=== PATIENT | female | born 2000 | race American Indian/Alaskan Native ===

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

== ENCOUNTER 2019-05-29 13:02 | Outpatient (CLI) | payer MEDICAID ==
[2019-05-29] MEDS ORDERED: LACTATED RINGERS 500 ML IV ONE (13:33)
[2019-05-29 14:00] VITALS: BP 94/50
[2019-05-29] MEDS ORDERED: LACTATED RINGERS 1,000 ML IV SCH (14:00)
[2019-05-29 14:17] LABS: Bacteria,Urine 2+ /HPF (Negative); Bilirubin,Urine NEG (Negative); Blood,Urine NEG (Negative); Color,Urine Yellow (Yellow); Mucus,Urine 1+ /HPF; Protein,Urine <15 mg/dL mg/dL (Negative); Urobilinogen,Urine < 2.0 mg/dL (<2.0)
== END 2019-05-29 14:33 | disposition home or self-care (01) ==
LOC: TRG 13:02
PROVIDERS: ATTEND Obstetrics & Gynecology
DX: O26.853 Spotting complicating pregnancy, third trimester (principal); Z3A.30 30 weeks gestation of pregnancy
CPT/HCPCS: 81001

== ENCOUNTER 2019-08-11 08:54 | Inpatient (IN) | payer MEDICAID ==
[2019-08-11] MEDS ORDERED: OXYTOCIN 20 UNIT/1000ML DRIP 20 UNITS/1,000 ML BAG IV SCH (10:00)
[2019-08-11] MEDS ORDERED: OXYTOCIN DRIP 30 UNITS/500 ML BAG IV SCH (10:00)
--- NOTE | 2019-08-11 10:22 | History and Physical Report ---
History of Present Illness Date of examination: 08/11/19 (pt presents for IOL d/t postdates) History of present illness: EDC Confirmation: 08/01/2019 Gestational Age: 28 5/7 weeks Past History : 2 Term Births: 1 Premature Births: 0 Living Children: 1 Para: 1 Mult. Births: 0 Prev : 0 Prev. attempt? none Aborta: 0 Elect. Ab: 0 Spont. Ab: 0 Ectopics: 0 # 1 Delivery date: 05/11/2018 Weeks Gestation: 41 labor: no Delivery type: Anesthesia type: none Sex: Female weight: 7#12 Past Medical History: Negative Past Medical History Past Surgical History: negative Past Medical History Anesthesia Complications: negative Anemia: negative Autoimmune Disorder: negative Bleeding Disorder: negative Blood Transfusions: negative Breast Disease: negative Diabetes: negative Heart Disease: negative Hypertension: negative Hepatitis/Liver Disease: negative Kidney Disease/UTI: negative Neurologic/Epilepsy/Migraines: negative Phlebitis/Varicosities: negative Psychiatric: negative Pulmonary Disease/Asthma: negative Thyroid Disease: negative Hospitalizations: negative Surgery (Non-sliver chopper): negative Abnormal PAP: negative MARIA ESTHER Exposure: negative Infertility: negative Uterine Anomaly: negative Uterine Surgery (not C/S): negative Other Gynecologic Problems: negative Family Hx: no hx of Ca Social Hx: no smoking/ETOH Infection History Hx of STD: chlamydia Varicella/Chicken Pox Status: Immunized Genetic History Congenital Heart Defect: Mom: no Dad: no Hugo Disease: Mom: no Dad: no Thalassemia Mom: no Dad: no Neural Tube Defect Mom: no Dad: no Down's Syndrome Mom: no Dad: no Bill-Sachs Mom: no Dad: no Sickle Cell Disease/Trait Mom: no Dad: no Hemophilia Mom: no Dad: no Muscular Dystrophy Mom: no Dad: no Cystic Fibrosis Mom: no Dad: no Roslyn Chorea Mom: no Dad: no Mental Retardation Mom: no Dad: no Fragile X Mom: no Dad: no Other Genetic/Chromosomal Disorder Mom: no Dad: no Child w/other defect Mom: no Dad: no Enviromental Exposures Xray Exposure: no Medication, drug, or alcohol use since LMP: no Chemical/Other Exposure: no Exposure to Cat Liter: no Hx of Parvovirus (Fifth Disease): no Occupational Exposure to Children: none Active Medications (reviewed today): None Current Allergies (reviewed today): No known allergies Past History - Obstetrical History Expected Date of Delivery: 08/01/19 Actual Gestation: 41 Week(s) 3 Day(s) : 2 Para: 1 Hx # Term Pregnancies: 1 Number of Pregnancies: 0 Spontaneous Abortions: 0 Induced : 0 Number of Living Children: 1 Medications and Allergies Allergies Allergy/AdvReac Type Severity Reaction Status Date / Time No Known Allergies Allergy Unverified 12/08/17 13:40 Active Meds: Active Medications Ephedrine Sulfate (Ephedrine Sulfate) 10 mg IV Q2M PRN PRN Reason: Hypotension Fentanyl (Sublimaze) 100 mcg IV Q2H PRN PRN Reason: Labor Pain Oxytocin/Sodium Chloride (Pitocin/Ns 20 Unit/1000ml Drip) 20 units in 1,000 mls @ 125 mls/hr IV DIRECT ALFONSO Oxytocin/Sodium Chloride (Pitocin/Ns 30 Unit/500ml) 30 units in 500 mls @ 4 mls/hr IV Q30MIN ALFONSO; Protocol Lactated Ringer's (Lactated Ringers) 1,000 mls @ 125 mls/hr IV DIRECT ALFONSO Lidocaine (Xylocaine 2%) 20 ml INFILTRATI ONCE NR Stop: 08/12/19 10:29 Mineral Oil (Mineral Oil) 30 ml PO QHS PRN PRN Reason: Constipation Ondansetron HCl (Zofran) 4 mg IV Q8H PRN PRN Reason: Nausea And Vomiting Terbutaline Sulfate (Brethine) 0.25 mg SUB-Q ONCE PRN PRN Reason: Hyperstimulation/Hypertonicity - Vital Signs Vital signs: Vital Signs Pulse Pulse Ox 91 H 99 08/11/19 09:22 08/11/19 09:22 Temp Pulse Resp BP Pulse Ox 98.4 F 90 16 108/69 97 08/11/19 09:23 08/11/19 10:07 08/11/19 09:23 08/11/19 09:23 08/11/19 10:07 - Physical Exam Breasts: Positive: deferred Cardiovascular: Regular rate, Normal S1, Normal S2 Lungs: Positive: Normal air movement Abdomen: Positive: normal appearance, soft, normal bowel sounds. Negative: distention, tenderness Genitourinary (Female): Positive: normal external genitalia Vulva: both: normal Vagina: Positive: normal moisture. Negative: discharge Cervix: Negative: lesion, discharge Uterus: Positive: normal size, normal contour Adnexa: both: normal Anus/Rectum: Positive: normal perianal skin, heme negative. Negative: rectal mass, hemorrhoids Extremities: Deep Tendon Reflex Grade: Normal +2 - Obstetrical FHR: category 1, category 2 (deep variable noted by RN Called urgently to bedside Internals placed Cat 1 ) Uterine Contraction Monitor Mode: Internal Cervical Dilatation: 4.5 (Internals placed) Cervical Effacement Percentage: 70 (clear fluid) station: -1 Uterine Contraction Pattern: Irregular Uterine Tone Measurement Phase: Resting Uterine Contraction Intensity: Mild Results Result Diagrams: 08/11/19 10:40 All other labs normal. GBS Negative HBsAg Screen Negative Negative *1 RPR Non Reactive Non Reactive *2 Rubella Antibodies, IgG 2.18 index Immune >0.99 *3 Non-immune <0.90 Equivocal 0.90 - 0.99 Immune >0.99 ABO Grouping A *4 Rh Factor Positive *5 Please note: Prior records for this patient's ABO / Rh type are not available for additional verification. Antibody Screen Negative Negative *6 WBC [H] 11.0 x10E3/uL 3.4-10.8 *7 RBC 3.93 x10E6/uL 3.77-5.28 *8 Hemoglobin [L] 10.8 g/dL 11.1-15.9 *9 Hematocrit 34.1 % 34.0-46.6 *10 MCV 87 fL 79-97 *11 MCH 27.5 pg 26.6-33.0 *12 MCHC 31.7 g/dL 31.5-35.7 *13 RDW 14.2 % 12.3-15.4 *14 Platelets 295 x10E3/uL 150-450 *15 Neutrophils 72 % Not Estab. *16 Lymphs 19 % Not Estab. *17 Monocytes 7 % Not Estab. *18 Eos 2 % Not Estab. *19 Basos 0 % Not Estab. *20 ! Immature Cells <No Reported Value> *21 Neutrophils (Absolute) [H] 7.9 x10E3/uL 1.4-7.0 *22 Lymphs (Absolute) 2.1 x10E3/uL 0.7-3.1 *23 Monocytes(Absolute) 0.7 x10E3/uL 0.1-0.9 *24 Eos (Absolute) 0.2 x10E3/uL 0.0-0.4 *25 Baso (Absolute) 0.0 x10E3/uL 0.0-0.2 *26 ! Immature Granulocytes 0 % Not Estab. *27 ! Immature Grans (Abs) 0.0 x10E3/uL 0.0-0.1 *28 ! NRBC <No Reported Value> *29 Hematology Comments: <No Reported Value> *30 Tests: (2) Panel 989275 ([id number]) HIV Screen 4th Generation wRfx Non Reactive Non Reactive *31 Tests: (3) Gest. Diabetes 1-Hr Screen (731455) ! Gestational Diabetes Screen 87 mg/dL 65-139 *32 According to ADA, a glucose threshold of >139 mg/dL after 50-gram load identifies approximately 80% of women with gestational diabetes mellitus, while the sensitivity is further increased to approximately 90% by a threshold of >129 mg/dL. Tests: (4) HCV Ab w/Rflx to Verification (918572) ! HCV Ab <0.1 s/co ratio 0.0-0.9 *33 Tests: (5) Comment: (008024) ! Comment: SPRCS *34 Non reactive HCV antibody screen is consistent with no HCV infection, unless recent infection is suspected or other evidence exists to indicate HCV infection. Tests: (6) Urine Culture, Routine (863941) Urine Culture, Routine Final report *35 Tests: (7) Result ([id number]) ! Result 1 No growth *36 Assessment and Plan 18yo @ 41 weeks for IOL GBS negative Orders in EMR aware of IOL
[2019-08-11] MEDS ORDERED: ONDANSETRON 4 MG/2 ML INJ IV PRN (10:30)
[2019-08-11] MEDS ORDERED: LIDOCAINE (2%) 20 MG/1 ML VIAL 20 ML MDV INFILTRATI NR (10:30)
[2019-08-11] MEDS ORDERED: LACTATED RINGERS 1,000 ML IV SCH (10:30)
[2019-08-11] MEDS ORDERED: fentaNYL 100 MCG/2 ML INJ IV PRN (10:30)
[2019-08-11] MEDS ORDERED: ePHEDrine SULFATE 50 MG/1 ML INJ IV PRN (10:30)
[2019-08-11] MEDS ORDERED: TERBUTALINE 1 MG/1 ML INJ SUB-Q PRN (10:30)
[2019-08-11] MEDS ORDERED: MINERAL OIL 30 ML ORAL LIQD PO PRN (11:00)
[2019-08-11 11:08] LABS: Hematocrit 36.2 % (30.3-42.9); Hemoglobin 11.9 gm/dl (10.1-14.3); Mean Corpuscular HGB Conc 33 % (30-34); Mean Corpuscular Volume 78 fl (79-97); Platelet Count 275 K/mm3 (140-440); Red Blood Count 4.63 M/mm3 (3.65-5.03); Red Cell Distribution Width 15.4 % (13.2-15.2)
[2019-08-11] MEDS ORDERED: PROMETHAZINE 25 MG TAB PO PRN (15:00)
[2019-08-11] MEDS ORDERED: ACETAMINOPHEN 325 MG TAB PO PRN (15:00)
[2019-08-11] MEDS ORDERED: MAGNESIUM HYDROXIDE (MOM) ORAL LIQD UDC PO PRN (15:00)
[2019-08-11] MEDS ORDERED: WITCH HAZEL/ GLYCERIN PAD TP PRN (15:00)
[2019-08-11] MEDS ORDERED: PROMETHAZINE 25 MG RECT SUPP PR PRN (15:00)
[2019-08-11] MEDS ORDERED: diphenhydrAMINE 25 MG CAP PO PRN (15:00)
[2019-08-11] MEDS ORDERED: LANOLIN/ZINC/DIMETHICONE (LANSINOH) 7 GM TP PRN (15:00)
--- NOTE | 2019-08-11 15:11 | Procedure Note ---
OB Delivery Note - Delivery Date of Delivery: 08/11/19 Harp Repairer: FLAKITA CAMARGO Estimated blood loss: 300cc - Vaginal Delivery presentation: vertex Delivery position: OA Intrapartum events: none Delivery induction: oxytocin Delivery augmentation: rupture of membranes Delivery monitor: internal FHT, internal uterine Route of delivery: Delivery placenta: spontaneous Delivery cord: nuchal cord, 3 umbilical vessels Episiotomy: none Delivery laceration: none Anesthesia: intravenous Delivery comments: Called urgently to LDR Pt 9cm with strong urge to push. Pt delivered spontaneously side lying With FOB @ bedside. CAN X 1 removed after baby had delivered w/o distress. Baby to mom's abdomen skin to skin Delayed cord clamping Cord clamped then cut by FOB. Placenta and membrane delivered complete and intact, 3 vessel cord. Pitocin IVFs. Baby to warmer with MAIRA in attendance. 8/9, EBL 300, Wgt 7-3. Mom and daughter remain LDR stable All questions addressed. - Infant A at 1 minute: 8 at 5 minutes: 9 Infant Gender: Female (wgt 7-3)
[2019-08-12] MEDS: IBUPROFEN 600 MG TAB PO SCH ×2 (00:08→15:17)
[2019-08-12] MEDS ORDERED: TETANUS,DIPH,PERTUSS(ACELL) VACCINE 0.5 ML SYRINGE IM ONE (06:00)
--- NOTE | 2019-08-12 08:10 | Discharge Summary ---
Providers - Providers Date of Admission: 08/11/19 08:55 Date of discharge: 08/12/19 (desires d/c home today) Attending physician: MARIA LUZ REHMAN Primary care physician: MARIA LUZ REHMAN Hospitalization Reason for admission: labor Condition: Good Procedures: Hospital course: uncomplicated and course Disposition: DC-01 TO HOME OR SELFCARE - Discharge Diagnoses (1) Normal spontaneous vaginal delivery Status: Acute Core Measure Documentation - Palliative Care Palliative Care/ Comfort Measures: Not Applicable - Core Measures Any of the following diagnoses?: none Exam - Constitutional Vitals: Temp Pulse Resp BP Pulse Ox 98.7 F 66 20 112/63 99 08/12/19 04:19 08/12/19 04:08/12/19 04:08/12/19 04:08/12/19 04:19 General appearance: Present: no acute distress, well-nourished - EENT Eyes: Present: PERRL ENT: hearing intact, clear oral mucosa - Neck Neck: Present: supple, normal ROM - Respiratory Respiratory effort: normal Respiratory: bilateral: CTA - Cardiovascular Rhythm: regular - Extremities Extremities: No edema - Abdominal General gastrointestinal: Present: soft, non-tender, non-distended, normal bowel sounds Female genitourinary: Present: normal - Integumentary Integumentary: Present: clear, warm, dry - Musculoskeletal Musculoskeletal: gait normal, strength equal bilaterally - Psychiatric Psychiatric: appropriate mood/affect, intact judgment & insight - Neurologic Neurologic: CNII-XII intact, moves all extremities - Additional findings Additional findings: lochia scant, fundus firm, Plan Activity: no restrictions Diet: regular Follow up with: MARIA LUZ REHMAN MD [Primary Care Provider] - 09/11/19 (Congratulations! Please call [phone] to schedule your visit in 4 weeks. Call for any questions or concerns. )
[2019-08-12 08:49] LABS: Hematocrit 34.1 % (30.3-42.9); Hemoglobin 10.9 gm/dl (10.1-14.3)
--- NOTE | 2019-08-12 09:25 | Event Note ---
Date: 08/12/19 H&H reviewed ..1, plan for d/c home this after noon when has been cleared.
[2019-08-12] MEDS ORDERED: PRENATAL VIT27-FE FUMARATE-FOLIC ACID VIT TAB PO SCH (10:00)
[2019-08-12] MEDS ORDERED: medroxyPROGESTERone ACETATE 150 MG/ML SYRINGE IM NR (12:00)
[2019-08-12] MEDS ORDERED: MEASLES, MUMPS & RUBELLA 12,500 UNIT/0.5 ML VACCINE SUB-Q ONE (15:00)
[2019-08-12 16:50] VITALS: BP 117/81
== END 2019-08-12 18:30 | disposition home or self-care (01) | DRG 775 ==
LOC: TRG 08:54 → LD 08:55 → OB 17:23
PROVIDERS: ADMIT Obstetrics & Gynecology; ATTEND Obstetrics & Gynecology
PROC: 10E0XZZ Delivery of Products of Conception, External Approach (ICD-10-PCS; principal; 2019-08-11)
PROC: 3E033VJ Introduction of Other Hormone into Peripheral Vein, Percutaneous Approach (ICD-10-PCS; 2019-08-11)
DX: O48.0 Post-term pregnancy (principal); O69.81X0 Labor and delivery complicated by cord around neck, without compression, not applicable or unspecified; Z3A.41 41 weeks gestation of pregnancy; Z37.0 Single live birth
CPT/HCPCS: 36415; 85014; 85018; 85027; 86592; 86850; 86900; 86901; G0378; J1050; J2590; J3010; J7120